=== PATIENT | female | born 1945 | race Two or more races ===

== ENCOUNTER 2022-11-02 20:48 | Emergency (ER) | payer OTHER ==
[~2022-11-02] VITALS: Ht 177.8 cm; Wt 79.4 kg
--- NOTE | 2022-11-02 21:00 | NUR ---
C/O TO ER BED 2. [id number]. FROM HOME MIDSTERNAL CP NON RADIAITING, SOB & NAUSEA. NOTED 85% ON RA. ON SIMPLE MASK 8L OF O2. PT IS ALERT AND ORIENTED. RR EVEN AND NONLABORED. CONNECTED POX AND HEART MONITOR.
--- NOTE | 2022-11-02 21:09 | NUR ---
EMT AT PT'S BEDSIDE
--- NOTE | 2022-11-02 21:09 | NUR ---
ENGINEERING MODEL MAKER AT PT'S BEDSIDE
--- NOTE | 2022-11-02 21:17 | NUR ---
IV LINE ESTABLISHED, [id number]
--- NOTE | 2022-11-02 21:22 | NUR ---
MEDICAL CLAIMS EXAMINER AT PT'S BEDSIDE
[2022-11-02 21:33] LABS: BASOPHILS # (AUTO) 0.1 K/uL (0.0-0.2); BASOPHILS % (AUTO) 0.3 % (0.0-2.0); EOSINOPHILS % (AUTO) 0.3 % (0.0-6.0); HEMATOCRIT 26 % (33-45); HEMOGLOBIN 7.7 g/dL (11.5-14.8); LYMPHOCYTES # (AUTO) 2.2 K/uL (0.8-4.8); MEAN CORPUSCULAR HGB CONC 30 g/dl (31.0-36.0); MEAN CORPUSCULAR VOLUME 91 fL (82-100); MONOCYTES # (AUTO) 1.1 K/uL (0.1-1.30); NEUTROPHILS # (AUTO) 24.1 K/uL (1.8-8.9); NEUTROPHILS % (AUTO) 87.4 % (43.0-81.0); PLATELET COUNT (AUTO) 459 K/uL (150-450); RED BLOOD CELL COUNT(AUTO) 2.83 MIL/uL (4.0-5.2); WHITE BLOOD COUNT (AUTO) 27.6 K/uL (4.3-11.0)
[2022-11-02 21:57] LABS: BAND % (MANUAL) 5 % (0.0-5.0); LYMPHOCYTES % (MANUAL) 14 % (16-48); MONOCYTES % (MANUAL) 3 % (0-11.0); NEUTROPHILS % (MANUAL) 78 (42-76)
--- NOTE | 2022-11-02 22:48 | NUR ---
COVID SWAB COLLECTED
--- NOTE | 2022-11-02 22:56 | NUR ---
PT TAKEN TO CT VIA [facility]
[2022-11-02] MEDS: IV NS 0.9% 500 ML BAG IV ONE (23:03)
[2022-11-02] MEDS ORDERED: CEFTRIAXONE 1GM BAG (ER ONLY) 50 ML IV ONE (23:09)
[2022-11-02] MEDS: CEFTRIAXONE 1GM BAG (ER ONLY) 1 GM/50 ML PIGGYBACK IV ONE (23:19)
[2022-11-02 23:23] LABS: SODIUM SERUM 129 mmol/L (136-145)
--- NOTE | 2022-11-02 23:23 | NUR ---
BUN 35, MD AWARE
[2022-11-02 23:24] LABS: CALCIUM, SERUM 8.7 mg/dL (8.5-10.1); CARBON DIOXIDE 18 mmol/L (21-32); CHLORIDE 99 mmol/L (98-107); CREATININE 1.9 mg/dL (0.6-1.3); GLUCOSE 195 mg/dL (74-106); POTASSIUM 4.8 mmol/L (3.5-5.1); UREA NITROGEN, BLOOD 35 mg/dL (7-18)
[2022-11-02] MEDS ORDERED: CEFEPIME 1 GM VIAL ONE (23:40)
[2022-11-02] MEDS ORDERED: AZITHROMYCIN 500 MG VIAL ONE (23:41)
[2022-11-02] MEDS: AZITHROMYCIN 500 MG in IV D5W 250 ML IV ONE (23:54)
[2022-11-03 00:07] LABS: BILIRUBIN,URINE NEGATIVE (NEGATIVE); COLOR,URINE DARK YELLOW (YELLOW); LEUKOCYTE ESTERASE ,URINE 2+ (NEGATIVE); NITRITE, URINE NEGATIVE (NEGATIVE); PROTEIN,URINE 1+ mg/dl (NEGATIVE); UGLUCOSE NEGATIVE (NEGATIVE); UROBILINOGEN,URINE 0.2 EU/dL (0.2)
[2022-11-03 00:11] LABS: RBC,URINE 0-2 /HPF (0-2)
[2022-11-03 00:12] LABS: BACTERIA,URINE Moderate /HPF (None Seen); SQUAMOUS EPITHELIAL CELL,UR Many /HPF (None Seen)
[2022-11-03 00:42] LABS: BILIRUBIN,DIRECT 0.1 mg/dL (0.0-0.2); BILIRUBIN,TOTAL 0.2 mg/dL (0.2-1.0)
--- NOTE | 2022-11-03 01:47 | NUR ---
[facility] PAGED PER DR PALOMO.
--- NOTE | 2022-11-03 02:02 | NUR ---
DR. PALOMO DO ON PHONE CALL WITH DR. YULIA LEAHY [facility]
--- NOTE | 2022-11-03 05:54 | NUR ---
PT ACCEPTED TO [facility] UNDER DR FARLEY. ROOM [id number] # FOR REPORT [phone] PT WILL BE PICKED UP BY [facility] AT [phone]
--- NOTE | 2022-11-03 06:18 | NUR ---
CALLED [facility] TO GIVE REPORT, THEY ASKED TO CALL UNTIL NEXT SHIFT
--- NOTE | 2022-11-03 07:59 | NUR ---
transport eta [phone]
--- NOTE | 2022-11-03 09:00 | NUR ---
report given to jane MAYO of [facility].
--- NOTE | 2022-11-03 09:40 | NUR ---
[facility] WILL INFORM
--- NOTE | 2022-11-03 10:33 | NUR ---
patient taken by ambulance going to [facility]
[2022-11-03 10:40] VITALS: BP 139/61
== END 2022-11-03 10:41 | disposition short-term general hospital (02) ==
LOC: ER 20:54
DX: J18.9 Pneumonia, unspecified organism (principal); N39.0 Urinary tract infection, site not specified; R07.9 Chest pain, unspecified; D64.9 Anemia, unspecified; I50.9 Heart failure, unspecified; Z20.822 Contact with and (suspected) exposure to COVID-19
CPT/HCPCS: 99291; 74176; 96365; 96375; 87426; 99292; 93005; 71045; 85025; 80048; 87040 ×2; 87086; 83605 ×2; 81001; 36415 ×2; 84484 ×2; 83880; 82247; 82248; 85007; J7040; J0456; J0696; C9803; J0692; J7060

== ENCOUNTER 2022-11-27 02:57 | Emergency (ER) | payer OTHER ==
[~2022-11-27] VITALS: Ht 147.3 cm; Wt 79.4 kg
--- NOTE | 2022-11-27 03:04 | NUR ---
HERNAN 38 FROM HOME FOR C/O WEKANESS AND BEING "SICK" FOR 3 DAYS +N/V AND A FALL EPISDOE EARLIER TODAY. VITALS CHECKED. ATTACHED TO THE MONITOR. [id number].
--- NOTE | 2022-11-27 03:16 | NUR ---
EKG AT BEDSIDE BY EMT.
--- NOTE | 2022-11-27 03:28 | NUR ---
[phone] [facility]
--- NOTE | 2022-11-27 04:00 | NUR ---
RT NOTE LATE ENTRY PT REFUSED ABG. AWARE
--- NOTE | 2022-11-27 04:04 | NUR ---
TRUCK PACKER AT BEDSIDE.
--- NOTE | 2022-11-27 04:15 | NUR ---
PT TAKEN TO [facility] FOR CT SCAN.
[2022-11-27 04:22] LABS: BASOPHILS # (AUTO) 0.1 K/uL (0.0-0.2); BASOPHILS % (AUTO) 1.2 % (0.0-2.0); EOSINOPHILS % (AUTO) 5.8 % (0.0-6.0); HEMATOCRIT 33 % (33-45); HEMOGLOBIN 10.4 g/dL (11.5-14.8); LYMPHOCYTES # (AUTO) 2.6 K/uL (0.8-4.8); LYMPHOCYTES % (AUTO) 29.8 % (20.0-44.0); MEAN CORPUSCULAR HGB CONC 32 g/dl (31.0-36.0); MEAN CORPUSCULAR VOLUME 85 fL (82-100); MONOCYTES % (AUTO) 11.5 % (2.0-12.0); NEUTROPHILS # (AUTO) 4.5 K/uL (1.8-8.9); NEUTROPHILS % (AUTO) 51.7 % (43.0-81.0); PLATELET COUNT (AUTO) 318 K/uL (150-450); RED BLOOD CELL COUNT(AUTO) 3.84 MIL/uL (4.0-5.2); WHITE BLOOD COUNT (AUTO) 8.8 K/uL (4.3-11.0)
[2022-11-27 04:24] LABS: CALCIUM, SERUM 9.2 mg/dL (8.5-10.1); CARBON DIOXIDE 27 mmol/L (21-32); CHLORIDE 92 mmol/L (98-107); CREATININE 1.2 mg/dL (0.6-1.3); POTASSIUM 3.3 mmol/L (3.5-5.1); SODIUM SERUM 127 mmol/L (136-145); UREA NITROGEN, BLOOD 5 mg/dL (7-18)
[2022-11-27 04:35] LABS: GLUCOSE 363 mg/dL (74-106)
--- NOTE | 2022-11-27 05:05 | NUR ---
TRIED TO WALKED THE PT WITH ASSISTANCE AND TAKES ONLY FEW STEPS. UNABLE TO WALK AND BALANCE HERSELF BY OWN.
--- NOTE | 2022-11-27 05:08 | NUR ---
OFFERED BED HUNTER STILL UNABLE TO PROVIDE URINE SAMPLE.
[2022-11-27] MEDS ORDERED: AZITHROMYCIN 500 MG in IV D5W 250 ML IV ONE (05:30)
[2022-11-27] MEDS ORDERED: IV NS 0.9% 1,000 ML IV PRN (05:30)
[2022-11-27] MEDS ORDERED: CEFTRIAXONE 1GM BAG (ER ONLY) 1 GM/50 ML PIGGYBACK IV ONE (05:30)
--- NOTE | 2022-11-27 05:30 | NUR ---
[facility] CALLED
--- NOTE | 2022-11-27 05:52 | NUR ---
IV RAC #20S/L BLOOD COLLECTED & SENT TO LAB
[2022-11-27] MEDS ORDERED: CEFTRIAXONE 1 G VIAL ONE (06:01)
[2022-11-27] MEDS ORDERED: AZITHROMYCIN 500 MG VIAL ONE (06:18)
--- NOTE | 2022-11-27 07:00 | NUR ---
DR. WADE ON PHONE CALL WITH DR NATALY LEAHY MD
--- NOTE | 2022-11-27 07:03 | NUR ---
URINE SAMPLE COLLECTED AND SENT TO LAB.
[2022-11-27 08:39] LABS: COLOR,URINE YELLOW (YELLOW); PH,URINE 6.5 (5.0-8.0)
[2022-11-27 08:40] LABS: BILIRUBIN,URINE NEGATIVE (NEGATIVE); LEUKOCYTE ESTERASE ,URINE NEGATIVE (NEGATIVE); NITRITE, URINE NEGATIVE (NEGATIVE); PROTEIN,URINE NEGATIVE (NEGATIVE); UGLUCOSE 4+ mg/dL (NEGATIVE); UROBILINOGEN,URINE 0.2 EU/dL (0.2)
[2022-11-27 08:41] LABS: BACTERIA,URINE Rare /HPF (None Seen); RBC,URINE 0-2 /HPF (0-2); SQUAMOUS EPITHELIAL CELL,UR Few /HPF (None Seen); WBC,URINE 0-2 /HPF (0-3)
--- NOTE | 2022-11-27 08:51 | NUR ---
[facility] TELE [id number]. CALL [phone] TO GIVE REPORT. [facility] WILL PICKUP AT [phone].
[2022-11-27] MEDS ORDERED: ONDANSETRON HCL/PF 4 MG/2 ML VIAL ONE (09:07)
--- NOTE | 2022-11-27 09:29 | NUR ---
report given to [facility] Registered Nurse
[2022-11-27] MEDS ORDERED: ONDANSETRON HCL/PF 4 MG/2 ML VIAL IV ONE (09:30)
--- NOTE | 2022-11-27 10:02 | NUR ---
transport at bedside for pick up truck driver
[2022-11-27 10:03] VITALS: BP 126/71
== END 2022-11-27 10:00 | disposition short-term general hospital (02) ==
LOC: ER 02:58
DX: J18.9 Pneumonia, unspecified organism (principal); R53.1 Weakness; Z20.822 Contact with and (suspected) exposure to COVID-19
CPT/HCPCS: 99285; 96365; 70450; 71045; 96367; 96375; 87426; 93005; 85025; 80048; 82010; 83605; 81001; 36415; 84484; 83880; J0696; J2405; J7060; J7030; J0456; A4223; C9803